=== PATIENT | female | born 1965 | race Caucasian/White ===

== ENCOUNTER 2017-03-28 16:35 | Emergency (ER) | payer MEDICAID ==
[~2017-03-28] VITALS: Ht 154.9 cm; Wt 65.9 kg
[2017-03-28] MEDS ORDERED: LEVO75TA4 PO (16:41)
[2017-03-28] MEDS ORDERED: NAPR-58 PO (16:41)
[2017-03-28] MEDS ORDERED: ATOR20TA86 PO (16:41)
[2017-03-28] MEDS ORDERED: LOSA1TAB37 PO (16:41)
[2017-03-28 17:05] LABS: BASOPHILS # (AUTO) 0.06 K/uL (0.00-0.20); EOSINOPHILS # (AUTO) 0.46 K/uL (0.00-0.70); EOSINOPHILS % (AUTO) 7.97 % (1.0-6.0); HEMATOCRIT 33.7 % (36-46); HEMOGLOBIN 11.3 g/dL (12.0-16.0); LYMPHOCYTES # (AUTO) 2.4 K/uL (1.0-4.8); LYMPHOCYTES % (AUTO) 41.5 % (22.0-44.0); MEAN CORPUSCULAR HEMOGLOBIN 30.6 pg (26.0-34.0); MEAN CORPUSCULAR HGB CONC 33.5 G/dL (31.0-37.0); MEAN CORPUSCULAR VOLUME 91 fL (80-100); MONOCYTES # (AUTO) 0.4 K/uL (0.1-1.0); MONOCYTES % (AUTO) 6.7 % (2.0-9.0); NEUTROPHILS # (AUTO) 2.5 K/uL (1.8-7.7); NEUTROPHILS % (AUTO) 42.9 % (40.0-70.0); PLATELET COUNT (AUTO) 250 K/uL (150-450); RED BLOOD CELL COUNT(AUTO) 3.69 MIL/uL (4.00-5.20); RED CELL DISTRIBUTION WIDTH 12.3 % (11.5-14.5); WHITE BLOOD COUNT (AUTO) 5.8 K/uL (4.5-11.0)
[2017-03-28 17:16] LABS: CALCIUM, TOTAL 9.5 mg/dL (8.8-10.5); CREATININE 0.97 mg/dL (0.60-1.30); POTASSIUM 3.2 mmol/L (3.5-5.1)
[2017-03-28 17:21] LABS: ALBUMIN 3.7 g/dL (3.4-5.0); BILIRUBIN,TOTAL 0.4 mg/dL (0.1-1.0)
[2017-03-28 17:48] VITALS: BP 135/77
[2017-03-28] MEDS ORDERED: ACETAMINOPHEN 325 MG TABLET PO ONE (18:45)
[2017-03-28] MEDS ORDERED: POTASSIUM CHLORIDE 20 MEQ ER TABLET PO ONE (18:45)
== END 2017-03-28 19:04 | disposition home or self-care (01) ==
LOC: EMS 16:36
DX: I10 Essential (primary) hypertension (principal); E78.00 Pure hypercholesterolemia, unspecified; F17.210 Nicotine dependence, cigarettes, uncomplicated; F12.90 Cannabis use, unspecified, uncomplicated
CPT/HCPCS: 93005; 99285

== ENCOUNTER 2021-12-31 19:32 | Emergency (ER) | payer MEDICAID ==
[~2021-12-31] VITALS: Ht 152.4 cm; Wt 72.7 kg
[~2021-12-31 19:32] MED LIST: ATOR20TA86 PO; LEVO75TA4 PO; LOSA1TAB37 PO; NAPR-1025 PO
[2021-12-31] MEDS ORDERED: LORA10TA7 PO (19:53)
[2021-12-31] MEDS ORDERED: ASPI-1450 PO (19:53)
[2021-12-31] MEDS ORDERED: ATOR40TA28 PO (19:53)
[2021-12-31] MEDS ORDERED: ALBU8.5H8 IH (19:53)
[2021-12-31] MEDS ORDERED: CALC-1209 PO (19:53)
[2021-12-31] MEDS ORDERED: LEVO100 PO (19:53)
[2021-12-31 21:01] VITALS: BP 155/88
[2021-12-31] MEDS ORDERED: SODIUM CHLORIDE 0.9% 1,000 ML IV ONE (22:30)
[2021-12-31] MEDS ORDERED: KETOROLAC TROMETHAMINE 30 MG/ML VIAL IVP ONE (22:30)
== END 2021-12-31 22:29 | disposition left against medical advice (07) ==
LOC: EMS 19:37
DX: R51.9 Headache, unspecified (principal); R42 Dizziness and giddiness; E78.00 Pure hypercholesterolemia, unspecified; I10 Essential (primary) hypertension; F12.90 Cannabis use, unspecified, uncomplicated; F17.210 Nicotine dependence, cigarettes, uncomplicated; Z86.79 Personal history of other diseases of the circulatory system; Z98.890 Other specified postprocedural states; Z53.21 Procedure and treatment not carried out due to patient leaving prior to being seen by health care provider